=== PATIENT | female | born 1950 | race Caucasian/White ===

== ENCOUNTER → 2016-10-15 | Outpatient (CLI) | payer MEDICARE ==
[~2016-10-15] MED LIST: /PANT40TA; /SUCR1TA; ALBU17IN2; AMLO10TA PO; AMLO5TAB; ATEN25TA; ATEN25TA PO; CALC500T36 PO; DIOV80TA; E-Z-GAS II EFFERVESCENT PACKET (SODIUM BICARB./CITRIC ACID/SIMETHICONE) As Ordered ONE; E-Z-HD 98% w/w 340GM SUSP BTL As Ordered ONE; E-Z-PAQUE 96% w/w SUSP 176GM BTL As Ordered ONE; FERR325T; FISH500C PO; FISHCAP; GAS-80CH; GLUC1CAP9 PO; IBUP800T23 PO; KLOR10TA; OYST500T; PERC5TAB6 PO; PERC5TAB8; PREV30CA11 PO; PROMETHAZINE; ST JOHN'S WART; TUSSSUS5; TYLE650T30 PO; VITA100T5; VITA100T5 PO; VITA400T2 PO; VITAMIN B COMPLE1; VITAMIN D50000 UNT; XANA0.5T PO; [UNRECOGNIZED DRUG - OTHER]
--- NOTE | 2016-10-16 08:07 | REP ---
UPPER GI, AIR CONTRAST: The procedure was performed under the direct supervision of Dr. Park. The images were reviewed with Dr. Park. The graphic specialist film shows no organomegaly or pathological masses. The intestinal gas pattern is nonspecific. There is levoscoliosis. Liquid barium was administered in the erect and prone oblique positions. The oral and pharyngeal stages of deglutition are unremarkable. Esophageal transport is prompt and efficient and there is no esophagitis, stricture or mucosal ring. The patient states she has had remote hiatal hernia repair. At the GE junction, there is irregular mucosa with a possible ulcer at the GE junction. There is gastroesophageal reflux demonstrated to the level of the tanya. These findings may represent reflux esophagitis. The stomach saleh are normally outlined. There is a gastric diverticulum in the fundus. There is no gastritis, neoplasm or ulcer disease. The duodenal saleh are normally outlined. The mucosal folds are smooth and regular. There is no duodenitis, pancreatitis, peptic ulcer disease or neoplasm. The visualized portion of the proximal small bowel appears normal in course and caliber. IMPRESSION: 1. There is irregular mucosa with a possible ulcer at the GE junction. There is gastroesophageal reflux demonstrated to the level of the tanya. These findings may represent reflux esophagitis. 2. There is a small gastric diverticulum in the fundus of the stomach. 2 minutes and 55 seconds of fluoroscopy time was utilized for this procedure. Reviewed by EVANGELINA Balderrama 10/17/2016 03:26 PEdited and Signed by Rajesh Park MD 10/17/2016 04:49 P
== END ==
LOC: M RAD 09:26
PROVIDERS: ATTEND Surgery
DX: R13.10 Dysphagia, unspecified (principal)

== ENCOUNTER → 2016-10-31 | Outpatient (CLI) | payer MEDICARE ==
[~2016-10-31] VITALS: Ht 160 cm; Wt 83.0 kg
[~2016-10-31] MED LIST changes: +CALC600T21 PO; -E-Z-GAS II EFFERVESCENT PACKET (SODIUM BICARB./CITRIC ACID/SIMETHICONE) As Ordered ONE; -E-Z-HD 98% w/w 340GM SUSP BTL As Ordered ONE; -E-Z-PAQUE 96% w/w SUSP 176GM BTL As Ordered ONE; +LIDOCAINE 2% INJ 100 MG/5 ML SDV (FOR ANES.) As Ordered ONE; +OXYB5TA PO; +PROPOFOL 200 MG/20 ML VIAL As Ordered ONE; +RANI15TA PO; +VITA-121 PO; +VITA500C24 PO; +XANA0.25 PO
[2016-10-31] MEDS: NS 1,000 ML IV SCH (08:33)
--- NOTE | 2016-10-31 09:14 | ROOR ---
Patient Name: Maggie Sow Procedure Date: 10/31/2016 8:56 AM Date of : 1950 Age: 66 Room: [facility] Gender: Female Note Status: Finalized Procedure: Upper GI endoscopy Indications: Esophageal dysphagia, Heartburn, Suspected reflux esophagitis Providers: Mario Willson MD Referring MD: Ry Becerril MD Requesting Provider: Medicines: Monitored Anesthesia Care Complications: No immediate complications. Procedure: Pre-Anesthesia Assessment: - Prior to the procedure, a History and Physical was performed, and patient medications and allergies were reviewed. The patient is competent. The risks and benefits of the procedure and the sedation options and risks were discussed with the patient. All questions were answered and informed consent was obtained. Patient identification and proposed procedure were verified by the physician, the nurse and the anesthesiologist in the endoscopy suite. Mental Status Examination: alert and oriented. Airway Examination: normal oropharyngeal airway and neck mobility. Respiratory Examination: clear to auscultation. CV Examination: normal. Prophylactic Antibiotics: The patient does not require prophylactic antibiotics. Prior Anticoagulants: The patient has taken no previous anticoagulant or antiplatelet agents. ASA Grade Assessment: II - A patient with mild systemic disease. After reviewing the risks and benefits, the patient was deemed in satisfactory condition to undergo the procedure. The anesthesia plan was to use monitored anesthesia care (MAC). Immediately prior to administration of medications, the patient was re-assessed for adequacy to receive sedatives. The heart rate, respiratory rate, oxygen saturations, blood pressure, adequacy of pulmonary ventilation, and response to care were monitored throughout the procedure. The physical status of the patient was re-assessed after the procedure. The Endoscope was introduced through the mouth, and advanced to the second part of duodenum. The upper GI endoscopy was accomplished without difficulty. The patient tolerated the procedure well. Findings: Three cratered, linear and superficial esophageal ulcers with no bleeding and no stigmata of recent bleeding were found 35 to 38 cm from the incisors. The largest lesion was less than one mm in largest dimension. This was biopsied with a cold forceps for histology. Estimated blood loss was minimal. A small hiatal hernia was present. The second portion of the duodenum was normal. Impression: - Non-bleeding esophageal ulcers. Biopsied. - Small hiatal hernia. - Normal second portion of the duodenum. Recommendation: - Discharge patient to home (ambulatory). - Use Zantac (ranitidine) 150 mg PO BID indefinitely. - Return to my office in 1 month. Mario Willson MD Mario Willson MD 10/31/2016 9:13:59 AM This report has been signed electronically. Number of Addenda: 0 Note Initiated On: 10/31/2016 8:56 AM Estimated Blood Loss: Estimated blood loss was minimal.
[2016-10-31 09:30] VITALS: BP 160/76
== END | disposition home or self-care (01) ==
LOC: M OPP 08:12
PROVIDERS: ATTEND Surgery
DX: R13.10 Dysphagia, unspecified (principal); R12 Heartburn; K22.10 Ulcer of esophagus without bleeding; K44.9 Diaphragmatic hernia without obstruction or gangrene; K21.9 Gastro-esophageal reflux disease without esophagitis; I10 Essential (primary) hypertension; M62.81 Muscle weakness (generalized); F41.9 Anxiety disorder, unspecified; F32.9 Major depressive disorder, single episode, unspecified; Z87.19 Personal history of other diseases of the digestive system; M19.90 Unspecified osteoarthritis, unspecified site; M51.9 Unspecified thoracic, thoracolumbar and lumbosacral intervertebral disc disorder; M25.78 Osteophyte, vertebrae; Z86.12 Personal history of poliomyelitis; Z88.8 Allergy status to other drugs, medicaments and biological substances; Z88.1 Allergy status to other antibiotic agents; Z79.899 Other long term (current) drug therapy; Z80.1 Family history of malignant neoplasm of trachea, bronchus and lung; Z80.42 Family history of malignant neoplasm of prostate

== ENCOUNTER → 2017-01-29 | Outpatient (CLI) | payer OTHER, MEDICARE ==
[~2017-01-29] MED LIST changes: -CALC600T21 PO; +CALC600T60 PO; +IBUP1TAB7 PO; -IBUP800T23 PO; -LIDOCAINE 2% INJ 100 MG/5 ML SDV (FOR ANES.) As Ordered ONE; -OXYB5TA PO; +OXYB5TAB10 PO; +PERC5TAB12 PO; -PERC5TAB6 PO; +PREV1CAP PO; -PREV30CA11 PO; -PROPOFOL 200 MG/20 ML VIAL As Ordered ONE
--- NOTE | 2017-01-29 12:02 | REP ---
COMPLETE SKULL, FIVE VIEW: HISTORY: Trauma. There is no acute fracture or bone lesion. The sinuses are clear. IMPRESSION: There is no acute fracture or bone lesion. Signed by Harman Epps MD 01/29/2017 12:14 P
== END ==
LOC: M LAB 10:18 → M RAD 10:18
PROVIDERS: ATTEND Nurse Practitioner Family
DX: R42 Dizziness and giddiness (principal)

== ENCOUNTER 2017-05-15 07:05 | Day surgery (SDC) | payer MEDICARE ==
[~2017-05-15] VITALS: Ht 160 cm; Wt 82.6 kg
[~2017-05-15 07:05] MED LIST changes: +CARA1TAB6 PO; +TOPR25TA PO
[2017-05-15] MEDS ORDERED: NS 1,000 ML IV ONE (07:45)
[2017-05-15] MEDS ORDERED: PROPOFOL 200 MG/20 ML VIAL As Ordered ONE (08:30)
[2017-05-15] MEDS ORDERED: LIDOCAINE 2% INJ 100 MG/5 ML SDV (FOR ANES.) As Ordered ONE (08:30)
--- NOTE | 2017-05-15 08:42 | ROOR ---
Patient Name: Maggie Sow Procedure Date: 05/15/2017 8:19 AM Date of : 1950 Age: 67 Room: [facility] Gender: Female Note Status: Finalized Procedure: Upper GI endoscopy Indications: Heartburn, Suspected Burden's esophagus, Follow-up of Burden's esophagus Providers: Mario Willson MD Referring MD: Davion Becerril Requesting Provider: Medicines: Monitored Anesthesia Care Complications: No immediate complications. Procedure: Pre-Anesthesia Assessment: - Prior to the procedure, a History and Physical was performed, and patient medications and allergies were reviewed. The patient is competent. The risks and benefits of the procedure and the sedation options and risks were discussed with the patient. All questions were answered and informed consent was obtained. Patient identification and proposed procedure were verified by the physician, the nurse and the anesthesiologist in the endoscopy suite. Mental Status Examination: alert and oriented. Airway Examination: normal oropharyngeal airway and neck mobility. Respiratory Examination: clear to auscultation. CV Examination: normal. Prophylactic Antibiotics: The patient does not require prophylactic antibiotics. Prior Anticoagulants: The patient has taken no previous anticoagulant or antiplatelet agents. ASA Grade Assessment: II - A patient with mild systemic disease. After reviewing the risks and benefits, the patient was deemed in satisfactory condition to undergo the procedure. The anesthesia plan was to use monitored anesthesia care (MAC). Immediately prior to administration of medications, the patient was re-assessed for adequacy to receive sedatives. The heart rate, respiratory rate, oxygen saturations, blood pressure, adequacy of pulmonary ventilation, and response to care were monitored throughout the procedure. The physical status of the patient was re-assessed after the procedure. The Endoscope was introduced through the mouth, and advanced to the second part of duodenum. The upper GI endoscopy was somewhat difficult. The patient tolerated the procedure well. Findings: One tongue of salmon-colored mucosa was present at 32 cm and three tongues of salmon-colored mucosa were present at 28 cm. No other visible abnormalities were present. The maximum longitudinal extent of these esophageal mucosal changes was 5 cm in length. Biopsies were taken with a cold forceps for histology. Impression: - No specimens collected. Recommendation: - Discharge patient to home (ambulatory). - Use Protonix (pantoprazole) 40 mg PO daily indefinitely. Mario Willson MD Mario Willson MD 05/15/2017 8:41:39 AM This report has been signed electronically. Number of Addenda: 0 Note Initiated On: 05/15/2017 8:19 AM Estimated Blood Loss: Estimated blood loss was minimal.
[2017-05-15 09:13] VITALS: BP 141/92
== END 2017-05-15 09:14 | disposition home or self-care (01) ==
LOC: M OPP 07:05
PROVIDERS: ATTEND Surgery
DX: R12 Heartburn (principal); K21.0 Gastro-esophageal reflux disease with esophagitis; K22.10 Ulcer of esophagus without bleeding; K22.70 Barrett's esophagus without dysplasia; I10 Essential (primary) hypertension; K57.92 Diverticulitis of intestine, part unspecified, without perforation or abscess without bleeding; K58.9 Irritable bowel syndrome, unspecified; R06.02 Shortness of breath; M19.90 Unspecified osteoarthritis, unspecified site; F32.9 Major depressive disorder, single episode, unspecified; F41.9 Anxiety disorder, unspecified; Z86.12 Personal history of poliomyelitis; Z87.820 Personal history of traumatic brain injury; Z88.8 Allergy status to other drugs, medicaments and biological substances; Z88.1 Allergy status to other antibiotic agents; Z79.899 Other long term (current) drug therapy; Z80.1 Family history of malignant neoplasm of trachea, bronchus and lung; Z80.42 Family history of malignant neoplasm of prostate

== ENCOUNTER 2017-07-25 10:47 | Day surgery (SDC) | payer MEDICARE ==
[~2017-07-25 10:47] MED LIST changes: -/PANT40TA; -/SUCR1TA; -ALBU17IN2; -AMLO10TA PO; -AMLO5TAB; -ATEN25TA; -ATEN25TA PO; -CALC500T36 PO; -CALC600T60 PO; -CARA1TAB6 PO; -DIOV80TA; -FERR325T; -FISH500C PO; -FISHCAP; -GAS-80CH; -GLUC1CAP9 PO; -IBUP1TAB7 PO; -KLOR10TA; +LIDOCAINE 2% INJ 100 MG/5 ML SDV (FOR ANES.) As Ordered; -OXYB5TAB10 PO; -OYST500T; -PERC5TAB12 PO; -PERC5TAB8; -PREV1CAP PO; -PROMETHAZINE; +PROPOFOL 200 MG/20 ML VIAL As Ordered; -RANI15TA PO; -ST JOHN'S WART; -TOPR25TA PO; -TUSSSUS5; -TYLE650T30 PO; -VITA-121 PO; -VITA100T5; -VITA100T5 PO; -VITA400T2 PO; -VITA500C24 PO; -VITAMIN B COMPLE1; -VITAMIN D50000 UNT; -XANA0.25 PO; -XANA0.5T PO; -[UNRECOGNIZED DRUG - OTHER]
[2017-07-25] MEDS: NS 1,000 ML IV (11:00)
== END 2017-07-25 13:14 | disposition home or self-care (01) ==
LOC: M OPP 10:47
DX: K22.2 Esophageal obstruction (principal); R13.10 Dysphagia, unspecified; K44.9 Diaphragmatic hernia without obstruction or gangrene; I10 Essential (primary) hypertension; K21.9 Gastro-esophageal reflux disease without esophagitis; F32.9 Major depressive disorder, single episode, unspecified; F41.9 Anxiety disorder, unspecified; M17.0 Bilateral primary osteoarthritis of knee; Z87.820 Personal history of traumatic brain injury; Z78.0 Asymptomatic menopausal state
CPT/HCPCS: 43249

== ENCOUNTER → 2018-06-24 | Outpatient (REF) | payer MEDICARE, OTHER ==
[~2018-06-24] MED LIST changes: +/PANT40TA; +/SUCR1TA; +ACET1TAB55 PO; +ALBU17IN2; +AMLO10TA PO; +AMLO5TAB; +ASPI81TA85 PO; +ATEN25TA; +ATEN25TA PO; +ATOR1TAB21 PO; +CALC500T36 PO; +CALC600T60 PO; +CARA1TAB6 PO; +DIOV80TA; +FERR325T; +FERR325T16 PO; +FISH500C PO; +FISHCAP; +GAS-80CH; +GLUC1CAP9 PO; +IBUP1TAB7 PO; +KLOR10TA; -LIDOCAINE 2% INJ 100 MG/5 ML SDV (FOR ANES.) As Ordered; +LISI2.5T5 PO; +METO25TA4 PO; +OXYB5TAB10 PO; +OYST500T; +PANT40TA3 PO; +PERC5TAB12 PO; +PERC5TAB8; +PLAV1TAB2 PO; +PREV1CAP PO; +PROMETHAZINE; -PROPOFOL 200 MG/20 ML VIAL As Ordered; +RANI15TA PO; +ST JOHN'S WART; +TOPR25TA13 PO; +TUSSSUS5; +TYLE650T30 PO; +TYLE650T35 PO; +VITA-121 PO; +VITA100T5; +VITA100T59 PO; +VITA400T2 PO; +VITA500C24 PO; +VITA500T PO; +VITAMIN B COMPLE1; +VITAMIN D50000 UNT; +XANA0.25 PO; +XANA0.5T PO; +[UNRECOGNIZED DRUG - OTHER]
[2018-06-24 18:10] LABS: PERCENT SATURATION 37.3 % (13.2-45.0)
== END ==
LOC: M LAB REF 17:28
PROVIDERS: ATTEND Family Medicine
DX: I10 Essential (primary) hypertension (principal); D64.9 Anemia, unspecified

== ENCOUNTER 2018-07-07 15:04 | Outpatient (RCR) | payer MEDICARE ==
--- NOTE | 2018-07-02 14:14 | CARECAPL ---
Assessment Account #s: Initial Assessment General Diagnoses: STEMI Date of event: May 23, 2018 Allergies: Coded Allergies: Atorvastatin (Verified Adverse Reaction, Intermediate, MUSCLE ACHES, 07/22/17) Cephalosporins (Verified Adverse Reaction, Intermediate, DIARRHEA, 05/27) Simvastatin (Verified Adverse Reaction, Intermediate, MUSCLE ACHES, 07/22/17) Date Entered Program: Jul 02, 2018 Risk strat for cardiac event: Low Exercise Date: Jul 02, 2018 Assessment: Initial Assessment Exercise Prescription Plan educate and increase endurance through exercise Modalities initiated: Treadmill (will add), Nustep (mets 2.1 RPE 3), Arm Aerometer (mets 2.55 RPE 2), Dumbells (will add), Recumbent Bike (mets 2.7 RPE 3) Frequency: 2-3 Duration (Minutes) 30-60 minutes total exercise a day. 15-20 work intervals in minutes. prn rest intervals in minutes. Functional Capacity Goal Sustained Metabolic Equivalent of a task (MET) goal of 3.75-4.5 for 15-20 minutes. Intensity: 3-Moderate Progression (METS) Increase by: 0.5 METS every: 3-5 sessions Angina with ex: No Target Heart Rate rest + 35-40 Resistance Training: Yes Weight (pounds): 1 Reps: 8-12 Hypertension: Yes Hypertension controlled with: Medication Resting 157/88 Peak Exercise BP 170/90 Meds norvasc, lisinopril and lopressor Medications Scheduled (Glucosamine & Chondroitin 500-400 mg), 2 CAP PO DAILY, (Reported) Acetaminophen (Tylenol 8 Hour Arthritis), 650 MG PO DAILY, (Reported) Amlodipine Besylate (Norvasc), 10 MG PO DAILY, (Reported) Ascorbic Acid (Vitamin C), 500 MG PO DAILY, (Reported) Aspirin (Aspir-81), 1 TAB PO DAILY, (Reported) Atorvastatin Calcium (Atorvastatin Calcium), 1 TAB PO BID, (Reported) Calcium Carbonate (Calcium), 600 MG PO DAILY, (Reported) Clopidogrel Bisulfate (Plavix), 75 MG PO DAILY, (Reported) Ferrous Gluconate (Ferrous Gluconate), 1 TAB PO DAILY, (Reported) Fish Oil (Fish Oil), 1,000 MG PO DAILY, (Reported) Lisinopril (Lisinopril), 5 MG PO DAILY, (Reported) Metoprolol Tartrate (Metoprolol Tartrate), 50 MG PO DAILY, (Reported) Oxybutynin Chloride (Oxybutynin Chloride), 5 MG PO BIDP, (Reported) Pantoprazole Sodium (Pantoprazole Sodium), 40 MG PO BID, (Reported) Scheduled PRN Acetaminophen (Acetaminophen), 325 MG PO PRN PRN for PAIN, (Reported) Alprazolam (Xanax), 0.25 MG PO BIDP PRN for ANXIETY, (Reported) Target Goals Individual exercise Rx (1) BP 140/90 or 130/80 if DM or CKD (1) Aerobic active 30+min 5 days per week (1) Nutrition Date: Jul 02, 2018 Lipid- med/supplement atorvastatin Monitor Blood Sugar at home: No Weight Management Weight (lbs): 183.6 Height (inches): 63 Waist Circumference (Inches): 47 BMI: 32.4 Weight goal: 150 Special Diet: low salt, low-fat Vitamin/Supplements: Vitamin C Alcohol: special Alcohol Type: wine Alcohol Amount: 1-2 Diet Access Tool: Rate your plate Score: 54 Intervention Bill Hiker Consult: No Nurse/patient discussion: Yes Dietary Goals eat healthier and smaller portions Referral to Diabetes education: No Referral to lipid clinic: No Referral to weight mangement p: No Education Eating Healthy Target goal LDL-C<100 if triglycerides are >200 Non-HDL-C should be <130 (1) LDL-C<70 for high risk patients (4) HbA1c<7% (1) BMI<25 Waist cir<40in M/<35in F (1) Education Date: Jul 02, 2018 Assessment: Initial Assessment Learning Barriers: cognitive (age related) Knowledge Test Score: 8 Family Support: Yes Tobacco use: No Quit: never smoked Intervention Education: CAD, Risk factors, med compliance, cardiac A&P, Angina S/S, Sexuality Target Goals Complete cessation of tobacco use (1). Psychosocial Date: Jul 02, 2018 Assessment: Initial Assessment Psych Test (Initial/Discharge) Tool Used: CESD Score: 3 Intervention Physician Consult: No Physician Referral: No Psychotropic medication none Education Education: Coping Techniques, S/S depression, Relaxation Techniques Target Goal Assess presence or absence of depression using a valid screening tool (1). Maximize coping skills (2). Positive support system (2). Patient/Program Goal Preventative Medication: Yes Aspirin, Yes Clopidogrel, Yes Beta blockade, Yes NICOLÁS Inhibitor, Yes Statin/OTR lipid Lowering Fall Risk Assess: No Provider Assessment Session Number: 1 Provider Assessment: Proceed with rehab Peace Rolon RN Jul 02, 2018 14:13
== END 2018-07-10 ==
LOC: M CR 15:04
PROVIDERS: ATTEND Internal Medicine Interventional Cardiology
DX: I21.09 ST elevation (STEMI) myocardial infarction involving other coronary artery of anterior wall (principal)

== ENCOUNTER 2018-08-06 15:11 | Outpatient (RCR) | payer MEDICARE ==
--- NOTE | 2018-07-28 08:05 | CARECAPL ---
Assessment Account #s: Re-Assessment I General Diagnoses: STEMI Date of event: May 23, 2018 Allergies: Coded Allergies: Atorvastatin (Verified Adverse Reaction, Intermediate, MUSCLE ACHES, 07/22/17) Cephalosporins (Verified Adverse Reaction, Intermediate, DIARRHEA, ) Simvastatin (Verified Adverse Reaction, Intermediate, MUSCLE ACHES, 07/22/17) Date Entered Program: Jul 02, 2018 Risk strat for cardiac event: Low Exercise Date: Jul 25, 2018 Assessment: Re-Assessment I Exercise Prescription Plan educate and increase endurance through exercise Modalities initiated: Nustep (mets 2.3 RPE 3 Mets 2.5 RPE 4), Arm Aerometer (mets 2.61 RPE 3), Dumbells (3lbs RPE 3) Frequency: 2-3 Duration (Minutes) 30-60 minutes total exercise a day. 15-20 work intervals in minutes. prn rest intervals in minutes. Functional Capacity Goal Sustained Metabolic Equivalent of a task (MET) goal of 3.75-4.5 for 15-20 minutes. Intensity: 3-Moderate Progression (METS) Increase by: 0.5 METS every: 3-5 sessions Angina with ex: No Target Heart Rate Rest +35-40 Resistance Training: Yes Weight (pounds): 3 Reps: 8-12 Medications Scheduled (Glucosamine & Chondroitin 500-400 mg), 2 CAP PO DAILY, (Reported) Acetaminophen (Tylenol 8 Hour Arthritis), 650 MG PO DAILY, (Reported) Amlodipine Besylate (Norvasc), 10 MG PO DAILY, (Reported) Ascorbic Acid (Vitamin C), 500 MG PO DAILY, (Reported) Aspirin (Aspir-81), 1 TAB PO DAILY, (Reported) Atorvastatin Calcium (Atorvastatin Calcium), 1 TAB PO BID, (Reported) Calcium Carbonate (Calcium), 600 MG PO DAILY, (Reported) Clopidogrel Bisulfate (Plavix), 75 MG PO DAILY, (Reported) Ferrous Gluconate (Ferrous Gluconate), 1 TAB PO DAILY, (Reported) Fish Oil (Fish Oil), 1,000 MG PO DAILY, (Reported) Lisinopril (Lisinopril), 5 MG PO DAILY, (Reported) Metoprolol Tartrate (Metoprolol Tartrate), 50 MG PO DAILY, (Reported) Oxybutynin Chloride (Oxybutynin Chloride), 5 MG PO BIDP, (Reported) Pantoprazole Sodium (Pantoprazole Sodium), 40 MG PO BID, (Reported) Scheduled PRN Acetaminophen (Acetaminophen), 325 MG PO PRN PRN for PAIN, (Reported) Alprazolam (Xanax), 0.25 MG PO BIDP PRN for ANXIETY, (Reported) Current BP 124/90 Med Change: No Intervention Resistance Training: Yes Education: Self pulse, Ex safety, S/S to report, Low NA diet, BP medication, RPE Scale, Equipment orientation, warm up/cool down, Understand BP, Physical Active Target Goals Individual exercise Rx (1) BP 140/90 or 130/80 if DM or CKD (1) Aerobic active 30+min 5 days per week (1) Nutrition Date: Jul 28, 2018 Assessment: Re-Assessment I Lipid- med/supplement atorvastatin Med Change: No Medication Change: No Special Diet: low salt, low-fat Vitamin/Supplements: Vitamin C Current Weight (pounds): 183.6 Intervention Dietary Goals 150 Diet Class: Yes Education Eating Healthy Target goal LDL-C<100 if triglycerides are >200 Non-HDL-C should be <130 (1) LDL-C<70 for high risk patients (4) HbA1c<7% (1) BMI<25 Waist cir<40in M/<35in F (1) Education Date: Jul 28, 2018 Assessment: Re-Assessment I Target Goals Complete cessation of tobacco use (1). Psychosocial Date: Jul 28, 2018 Assessment: Re-Assessment I Med Change: No Stress Management Class: Yes Uses Stress Management Skills: Yes Education Education: Coping Techniques, S/S depression, Relaxation Techniques Target Goal Assess presence or absence of depression using a valid screening tool (1). Maximize coping skills (2). Positive support system (2). Patient/Program Goal Preventative Medication: Yes Aspirin, Yes Clopidogrel, Yes Beta blockade, Yes NICOLÁS Inhibitor, Yes Statin/OTR lipid Lowering Fall Risk Assess: No Provider Assessment Session Number: 6 Provider Assessment: Proceed with rehab Peace Rolon RN Jul 28, 2018 08:05
== END 2018-08-07 ==
LOC: M CR 15:11
PROVIDERS: ATTEND Internal Medicine Interventional Cardiology
DX: I21.4 Non-ST elevation (NSTEMI) myocardial infarction (principal)

== ENCOUNTER 2018-09-04 15:21 | Outpatient (RCR) | payer MEDICARE ==
--- NOTE | 2018-08-20 10:35 | CARECAPL ---
Assessment Account #s: Re-Assessment II General Diagnoses: STEMI Date of event: May 23, 2018 Allergies: Coded Allergies: Atorvastatin (Verified Adverse Reaction, Intermediate, MUSCLE ACHES, 07/22/17) Cephalosporins (Verified Adverse Reaction, Intermediate, DIARRHEA, 07/22) Simvastatin (Verified Adverse Reaction, Intermediate, MUSCLE ACHES, 07/22/17) Date Entered Program: Jul 02, 2018 Risk strat for cardiac event: Low Exercise Date: Aug 15, 2018 Assessment: Re-Assessment II Exercise Prescription Modalities initiated: Treadmill (mets 1.46 RPE 3), Nustep (mets 2.2 RPE 2), Arm Aerometer (mets 2.24 RPE 3), Dumbells (2lbs RPE 2.5) Frequency: 2 Duration (Minutes) minutes total exercise a day. work intervals in minutes. rest intervals in minutes. Functional Capacity Goal Sustained Metabolic Equivalent of a task (MET) goal of for minutes. Intensity: 3-Moderate Progression (METS) Increase by: METS every: sessions Angina with ex: No Target Heart Rate Rest + 35-40 Medications Scheduled (Glucosamine & Chondroitin 500-400 mg), 2 CAP PO DAILY, (Reported) Acetaminophen (Tylenol 8 Hour Arthritis), 650 MG PO DAILY, (Reported) Amlodipine Besylate (Norvasc), 10 MG PO DAILY, (Reported) Ascorbic Acid (Vitamin C), 500 MG PO DAILY, (Reported) Aspirin (Aspir-81), 1 TAB PO DAILY, (Reported) Atorvastatin Calcium (Atorvastatin Calcium), 1 TAB PO BID, (Reported) Calcium Carbonate (Calcium), 600 MG PO DAILY, (Reported) Clopidogrel Bisulfate (Plavix), 75 MG PO DAILY, (Reported) Ferrous Gluconate (Ferrous Gluconate), 1 TAB PO DAILY, (Reported) Fish Oil (Fish Oil), 1,000 MG PO DAILY, (Reported) Lisinopril (Lisinopril), 5 MG PO DAILY, (Reported) Metoprolol Tartrate (Metoprolol Tartrate), 50 MG PO DAILY, (Reported) Oxybutynin Chloride (Oxybutynin Chloride), 5 MG PO BIDP, (Reported) Pantoprazole Sodium (Pantoprazole Sodium), 40 MG PO BID, (Reported) Scheduled PRN Acetaminophen (Acetaminophen), 325 MG PO PRN PRN for PAIN, (Reported) Alprazolam (Xanax), 0.25 MG PO BIDP PRN for ANXIETY, (Reported) Current BP 136/80 Med Change: No Intervention Education: Self pulse, Ex safety, S/S to report, Low NA diet, BP medication, RPE Scale, Equipment orientation, warm up/cool down, Understand BP, Physical Active Education Goals Met: Yes Target Goals Individual exercise Rx (1) BP 140/90 or 130/80 if DM or CKD (1) Aerobic active 30+min 5 days per week (1) Nutrition Date: Aug 20, 2018 Assessment: Re-Assessment II Med Change: No Diabetes Diabetes: No Medication Change: No Weight Management Weight (lbs): 183.6 Current Weight (pounds): 183.6 Education Eating Healthy Education Goals Met: Yes Target goal LDL-C<100 if triglycerides are >200 Non-HDL-C should be <130 (1) LDL-C<70 for high risk patients (4) HbA1c<7% (1) BMI<25 Waist cir<40in M/<35in F (1) Education Date: Aug 20, 2018 Assessment: Re-Assessment II Intervention Education: CAD, Risk factors, med compliance, cardiac A&P, Angina S/S, Sexuality Education Goals Met: Yes Target Goals Complete cessation of tobacco use (1). Psychosocial Date: Aug 20, 2018 Assessment: Re-Assessment II Med Change: No Stress Management Class: Yes Uses Stress Management Skills: Yes Education Education: Coping Techniques, S/S depression, Relaxation Techniques Education Goals Met: Yes Target Goal Assess presence or absence of depression using a valid screening tool (1). Maximize coping skills (2). Positive support system (2). Provider Assessment Session Number: 11 Provider Assessment: Proceed with rehab Peace Rolon RN Aug 20, 2018 10:35
--- NOTE | 2018-09-08 10:50 | CARECAPL ---
Assessment Account #s: Re-Assessment II (reassessment III) General Diagnoses: STEMI Date of event: Jul 02, 2018 Allergies: Coded Allergies: MS - Atorvastatin (Verified Adverse Reaction, Intermediate, MUSCLE ACHES, 07/22/17) MS - Cephalosporins (Verified Adverse Reaction, Intermediate, DIARRHEA, 07/22/17) MS - Simvastatin (Verified Adverse Reaction, Intermediate, MUSCLE ACHES, 07/22/17) Date Entered Program: Aug 15, 2018 Risk strat for cardiac event: Low Exercise Date: Sep 08, 2018 Assessment: Re-Assessment II (reassessment III) Exercise Prescription Modalities initiated: Nustep, Arm Aerometer, Dumbells Frequency: 2 Duration (Minutes) minutes total exercise a day. work intervals in minutes. rest intervals in minutes. Functional Capacity Goal Sustained Metabolic Equivalent of a task (MET) goal of for minutes. Intensity: 3-Moderate Progression (METS) Increase by: METS every: sessions Angina with ex: No Resistance Training: Yes Weight (pounds): 2 Medications Scheduled (Glucosamine & Chondroitin 500-400 mg), 2 CAP PO DAILY, (Reported) Acetaminophen (Tylenol 8 Hour Arthritis), 650 MG PO DAILY, (Reported) Amlodipine Besylate (Norvasc), 10 MG PO DAILY, (Reported) Ascorbic Acid (Vitamin C), 500 MG PO DAILY, (Reported) Aspirin (Aspir-81), 1 TAB PO DAILY, (Reported) Atorvastatin Calcium (Atorvastatin Calcium), 1 TAB PO BID, (Reported) Calcium Carbonate (Calcium), 600 MG PO DAILY, (Reported) Clopidogrel Bisulfate (Plavix), 75 MG PO DAILY, (Reported) Ferrous Gluconate (Ferrous Gluconate), 1 TAB PO DAILY, (Reported) Fish Oil (Fish Oil), 1,000 MG PO DAILY, (Reported) Lisinopril (Lisinopril), 5 MG PO DAILY, (Reported) Metoprolol Tartrate (Metoprolol Tartrate), 50 MG PO DAILY, (Reported) Oxybutynin Chloride (Oxybutynin Chloride), 5 MG PO BIDP, (Reported) Pantoprazole Sodium (Pantoprazole Sodium), 40 MG PO BID, (Reported) Scheduled PRN Acetaminophen (Acetaminophen), 325 MG PO PRN PRN for PAIN, (Reported) Alprazolam (Xanax), 0.25 MG PO BIDP PRN for ANXIETY, (Reported) Current BP 130/78 Med Change: No Intervention Home exercise: Type (walking, hand weights, stationary bike, join local gym) Resistance Training: Yes Education: Self pulse, Ex safety, S/S to report, Low NA diet, BP medication, RPE Scale, Equipment orientation, warm up/cool down, Understand BP, Physical Active Education Goals Met: Yes Target Goals Individual exercise Rx (1) BP 140/90 or 130/80 if DM or CKD (1) Aerobic active 30+min 5 days per week (1) Nutrition Date: Sep 08, 2018 Assessment: Re-Assessment II (reassessment III) Med Change: No Medication Change: No Current Weight (pounds): 187.5 Intervention Family Support Coordinator Consult: Yes Nurse/patient discussion: Yes Diet Class: Yes Education Eating Healthy Education Goals Met: Yes Target goal LDL-C<100 if triglycerides are >200 Non-HDL-C should be <130 (1) LDL-C<70 for high risk patients (4) HbA1c<7% (1) BMI<25 Waist cir<40in M/<35in F (1) Education Date: Sep 08, 2018 Assessment: Re-Assessment II (reassessment III) Intervention Education: CAD, Risk factors, med compliance, cardiac A&P, Angina S/S, Sexuality Education Goals Met: Yes Target Goals Complete cessation of tobacco use (1). Psychosocial Assessment: Re-Assessment II Target Goal Assess presence or absence of depression using a valid screening tool (1). Maximize coping skills (2). Positive support system (2). Provider Assessment Session Number: 15 Provider Assessment: No changes Umm Menendez RN Sep 08, 2018 10:50
== END 2018-09-07 ==
LOC: M CR 15:21
PROVIDERS: ATTEND Internal Medicine Interventional Cardiology
DX: I21.09 ST elevation (STEMI) myocardial infarction involving other coronary artery of anterior wall (principal)

== ENCOUNTER 2018-09-18 14:08 | Outpatient (RCR) | payer MEDICARE ==
[~2018-09-18 14:08] MED LIST changes: -/PANT40TA; -/SUCR1TA; +CALC12504 PO; -CALC500T36 PO; +LISI-1046 PO; -LISI2.5T5 PO; +PROT1TAB2; +SUCR1TAB56; +TOPR25TA PO; -TOPR25TA13 PO
--- NOTE | 2018-09-25 09:52 | CARECAPL ---
General Diagnoses: STEMI Date of event: Jul 02, 2018 Allergies: Coded Allergies: MS - Atorvastatin (Verified Adverse Reaction, Intermediate, MUSCLE ACHES, 07/22/17) MS - Cephalosporins (Verified Adverse Reaction, Intermediate, DIARRHEA, 07/22/17) MS - Simvastatin (Verified Adverse Reaction, Intermediate, MUSCLE ACHES, 07/22/17) Date Entered Program: Jul 02, 2018 Risk strat for cardiac event: Low Exercise Date: Sep 18, 2018 Assessment: Followup/Discharge Exercise Prescription Plan educate and increase endurance through exercise Modalities initiated: Treadmill (speed 0.6 Mets 1.46 RPE 2), Arm Aerometer (3.5 mets 3.5 RPE 2), Dumbells (3lbs RPE 2) Frequency: 2 Duration (Minutes) 30-60 minutes total exercise a day. 6-12 work intervals in minutes. prn rest intervals in minutes. Functional Capacity Goal Sustained Metabolic Equivalent of a task (MET) goal of 3.75-4.5 for 15-20 minutes. Intensity: 3-Moderate Progression (METS) Increase by: 0.5 METS every: 3-5 sessions Angina with ex: No Target Heart Rate rest + 35-40 per beta humberto therapy Resistance Training: Yes Weight (pounds): 3 Reps: 8-12 Hypertension: No Hypertension controlled with: Medication Resting 152/82 Peak Exercise BP 160/90 Meds norvasc, metoprolol and lisinopril Medications Scheduled (Glucosamine & Chondroitin 500-400 mg), 2 CAP PO DAILY, (Reported) Acetaminophen (Tylenol Arthritis), 650 MG PO DAILY, (Reported) Amlodipine Besylate (Norvasc), 10 MG PO DAILY, (Reported) Ascorbic Acid (Vitamin C), 500 MG PO DAILY, (Reported) Aspirin (Aspir 81), 1 TAB PO DAILY, (Reported) Atorvastatin Calcium (Atorvastatin Calcium), 1 TAB PO BID, (Reported) Calcium Carbonate (Calcium), 600 MG PO DAILY, (Reported) Clopidogrel Bisulfate (Plavix), 75 MG PO DAILY, (Reported) Ferrous Gluconate (Ferrous Gluconate), 1 TAB PO DAILY, (Reported) Lisinopril (Lisinopril), 5 MG PO DAILY, (Reported) Metoprolol Tartrate (Metoprolol Tartrate), 50 MG PO DAILY, (Reported) Auxier-3/Dha/Epa/Fish Oil (Fish Oil 500 mg Softgel), 1,000 MG PO DAILY, (Reported) Oxybutynin Chloride (Oxybutynin Chloride), 5 MG PO BIDP, (Reported) Pantoprazole Sodium (Pantoprazole Sodium), 40 MG PO BID, (Reported) Scheduled PRN Acetaminophen (Acetaminophen), 325 MG PO PRN PRN for PAIN, (Reported) Alprazolam (Xanax), 0.25 MG PO BIDP PRN for ANXIETY, (Reported) Intervention Education: Self pulse, Ex safety, S/S to report, Low NA diet, BP medication, RPE Scale, Equipment orientation, warm up/cool down, Understand BP, Physical Active Education Goals Met: Yes Target Goals Individual exercise Rx (1) BP 140/90 or 130/80 if DM or CKD (1) Aerobic active 30+min 5 days per week (1) Nutrition Date: Sep 18, 2018 Assessment: Followup/Discharge Lipid- med/supplement atorvastatin Med Change: No Medication Change: No Referral to Diabetes education: No Referral to lipid clinic: No Referral to weight mangement p: No Education Eating Healthy Education Goals Met: Yes Target goal LDL-C<100 if triglycerides are >200 Non-HDL-C should be <130 (1) LDL-C<70 for high risk patients (4) HbA1c<7% (1) BMI<25 Waist cir<40in M/<35in F (1) Education Date: Sep 25, 2018 Assessment: Followup/Discharge Intervention Education: CAD, Risk factors, med compliance, cardiac A&P, Angina S/S, Sexuality Education Goals Met: Yes Target Goals Complete cessation of tobacco use (1). Psychosocial Date: Sep 25, 2018 Assessment: Followup/Discharge Med Change: No Education Education: Coping Techniques, S/S depression, Relaxation Techniques Education Goals Met: Yes Target Goal Assess presence or absence of depression using a valid screening tool (1). Maximize coping skills (2). Positive support system (2). Patient/Program Goal Preventative Medication: Yes Aspirin, Yes Clopidogrel, Yes Beta blockade, Yes NICOLÁS Inhibitor, Yes Statin/OTR lipid Lowering Fall Risk Assess: No Provider Assessment Session Number: 17 Provider Assessment: Proceed with rehab (patient discharged from program) Peace Rolon RN Sep 25, 2018 09:52
== END 2018-10-07 ==
LOC: M CR 14:08
PROVIDERS: ATTEND Internal Medicine Interventional Cardiology
DX: I21.09 ST elevation (STEMI) myocardial infarction involving other coronary artery of anterior wall (principal)

== ENCOUNTER → 2018-10-06 | Outpatient (REF) | payer MEDICARE | LOC: M SFHCPLAZ 17:22 | PROVIDERS: ATTEND Dermatology | DX: L57.0 Actinic keratosis (principal) ==

== ENCOUNTER → 2019-06-18 | Outpatient (REF) | payer MEDICARE ==
[~2019-06-18] MED LIST changes: -CALC12504 PO; +CALC500T61 PO
== END ==
LOC: M LAB REF 18:00
PROVIDERS: ATTEND Family Medicine
DX: D50.9 Iron deficiency anemia, unspecified (principal); R53.83 Other fatigue

== ENCOUNTER → 2019-07-13 | Outpatient (REF) | payer MEDICARE | LOC: M SFHCWAGY 17:07 | PROVIDERS: ATTEND Nurse Practitioner Family | DX: Z12.4 Encounter for screening for malignant neoplasm of cervix (principal); N95.8 Other specified menopausal and perimenopausal disorders; Z12.12 Encounter for screening for malignant neoplasm of rectum | CPT/HCPCS: 82270; G0101; G0123 ==

== ENCOUNTER → 2020-06-11 | Outpatient (CLI) | payer MEDICARE ==
[~2020-06-11] MED LIST changes: +ACET650T61 PO; -ASPI81TA85 PO; +ASPI81TA86 PO; +CIDA500T2 PO; +ECOT81TA5 PO; -LISI-1046 PO; +LISI2.5T2 PO; +MAGN250T7 PO; +OMEP-218 PO; +PANT40TA29 PO; -PANT40TA3 PO; -TYLE650T35 PO; +VITA-243 PO; -VITA500T PO; +VITMTA PO; +eye promise PO
== END ==
LOC: M LABSMTC 11:19
PROVIDERS: ATTEND Anesthesiology
DX: Z01.812 Encounter for preprocedural laboratory examination (principal); Z20.828 Contact with and (suspected) exposure to other viral communicable diseases

== ENCOUNTER 2020-06-16 11:39 | Day surgery (SDC) | payer MEDICARE ==
[~2020-06-16] VITALS: Ht 160 cm; Wt 82.5 kg
[~2020-06-16 11:39] MED LIST changes: +NS 1,000 ML IV ONE
[2020-06-16] MEDS ORDERED: propofoL 200 MG/20 ML VIAL As Ordered ONE (14:00)
[2020-06-16] MEDS ORDERED: LIDOCAINE 2% 100MG/5ML SDV (FOR ANES.) As Ordered ONE (14:00)
--- NOTE | 2020-06-16 14:27 | ROOR ---
Patient Name: Maggie Sow Procedure Date: 06/16/2020 2:02 PM Date of : 1950 Age: 70 Room: [facility] Gender: Female Note Status: Finalized Procedure: Upper GI endoscopy Indications: Oropharyngeal phase dysphagia, Heartburn, Follow-up of Burden's esophagus, Follow-up of esophageal stenosis Providers: Harrison ARMAS MD Referring MD: Ry Becerril MD Requesting Provider: Medicines: Monitored Anesthesia Care Complications: No immediate complications. Procedure: Pre-Anesthesia Assessment: - The heart rate, respiratory rate, oxygen saturations, blood pressure, adequacy of pulmonary ventilation, and response to care were monitored throughout the procedure. The Endoscope was introduced through the mouth, and advanced to the second part of duodenum. The upper GI endoscopy was accomplished without difficulty. The patient tolerated the procedure well. Findings: One benign-appearing, intrinsic moderate (circumferential scarring or stenosis; an endoscope may pass) stenosis was found 36 cm from the incisors. This stenosis measured less than one cm (in length). The stenosis was traversed. A TTS dilator was passed through the scope. Dilation with a 15-16.5-18 mm balloon dilator was performed to 16.5 mm. The dilation site was examined and showed moderate mucosal disruption. Biopsies were taken with a cold forceps for histology. Meyers Chuck-colored mucosa was present. Squamous islands were present at 36 cm. The maximum longitudinal extent of these esophageal mucosal changes was 1 cm in length. Biopsies were taken with a cold forceps for histology. The entire examined stomach was normal. The examined duodenum was normal. Impression: - Benign-appearing esophageal stenosis at GE junction/36 cm from incisors. Dilated. - Meyers Chuck-colored mucosa in the area of the stricturte consistent with short-segment Burden's esophagus. Biopsied. - Normal stomach. - Normal examined duodenum. Recommendation: - Observe patient's clinical course. - Use Prilosec (omeprazole) 20 mg PO BID indefinitely. - Repeat upper endoscopy for surveillance in 3 years (or sooner depending on pathology results). Procedure Code(s): --- Professional --- 04883, Esophagogastroduodenoscopy, flexible, transoral; with transendoscopic balloon dilation of esophagus (less than 30 mm diameter) 56206, 59, Esophagogastroduodenoscopy, flexible, transoral; with biopsy, single or multiple Diagnosis Code(s): --- Professional --- R12, Heartburn R13.12, Dysphagia, oropharyngeal phase K22.70, Burden's esophagus without dysplasia K22.2, Esophageal obstruction CPT copyright 2019 [employer]. All rights reserved. The codes documented in this report are preliminary and upon pit operator review may be revised to meet current compliance requirements. Harrison Armas MD Harrison ARMAS MD 06/16/2020 2:26:58 PM Electronically signed by Harrison ARMAS MD Number of Addenda: 0 Note Initiated On: 06/16/2020 2:02 PM Estimated Blood Loss: Estimated blood loss: none.
[2020-06-16 15:06] VITALS: BP 156/78
== END 2020-06-16 15:11 | disposition home or self-care (01) ==
LOC: M OPP 11:39
PROVIDERS: ATTEND Internal Medicine Gastroenterology
DX: R13.12 Dysphagia, oropharyngeal phase (principal); R12 Heartburn; K22.70 Barrett's esophagus without dysplasia; K22.2 Esophageal obstruction; I25.2 Old myocardial infarction; I10 Essential (primary) hypertension; E78.5 Hyperlipidemia, unspecified; M19.90 Unspecified osteoarthritis, unspecified site; K21.9 Gastro-esophageal reflux disease without esophagitis; F41.9 Anxiety disorder, unspecified; Z95.5 Presence of coronary angioplasty implant and graft; Z88.1 Allergy status to other antibiotic agents; Z88.8 Allergy status to other drugs, medicaments and biological substances; Z79.82 Long term (current) use of aspirin; Z79.899 Other long term (current) drug therapy; Z80.42 Family history of malignant neoplasm of prostate; Z80.1 Family history of malignant neoplasm of trachea, bronchus and lung; Z82.49 Family history of ischemic heart disease and other diseases of the circulatory system; Z80.49 Family history of malignant neoplasm of other genital organs

== ENCOUNTER → 2020-06-29 | Outpatient (REF) | payer MEDICARE ==
[~2020-06-29] MED LIST changes: -NS 1,000 ML IV ONE
== END ==
LOC: M LAB REF 18:31
PROVIDERS: ATTEND Radiology Diagnostic Radiology
DX: N63.12 Unspecified lump in the right breast, upper inner quadrant (principal)

== ENCOUNTER → 2021-11-03 | Outpatient (CLI) | payer MEDICARE ==
[~2021-11-03] MED LIST changes: +FERR324T21 PO; -FERR325T16 PO; -LISI2.5T2 PO; +LISI2.5T9 PO; +OMEP-173 PO; -OMEP-218 PO
== END ==
LOC: M WHC 13:28
PROVIDERS: ATTEND Obstetrics & Gynecology
DX: Z12.31 Encounter for screening mammogram for malignant neoplasm of breast (principal)

== ENCOUNTER → 2022-09-15 | Outpatient (CLI) | payer MEDICARE ==
[~2022-09-15] MED LIST changes: +CLOP75TA99 PO; -PLAV1TAB2 PO
== END ==
LOC: M RAD 13:08
PROVIDERS: ATTEND Physician Assistant
DX: M25.512 Pain in left shoulder (principal)

== ENCOUNTER → 2023-03-15 | Outpatient (CLI) | payer MEDICARE, MEDICAID | LOC: M WHC 10:32 | PROVIDERS: ATTEND Obstetrics & Gynecology | DX: Z12.31 Encounter for screening mammogram for malignant neoplasm of breast (principal) ==

== ENCOUNTER → 2023-12-03 | Outpatient (REF) | payer MEDICARE, MEDICAID ==
[~2023-12-03] MED LIST changes: -OXYB5TAB10 PO; +OXYB5TAB14 PO
== END ==
LOC: M LAB REF 16:29
PROVIDERS: ATTEND Family Medicine
DX: R35.0 Frequency of micturition (principal)

== ENCOUNTER → 2024-01-14 | Outpatient (CLI) | payer MEDICARE, MEDICAID ==
[2024-01-14 19:26] LABS: BASO % 0.4 % (0.0-1.0); EOS # 0.3 10^3/uL (0.0-0.5); EOS % 3.7 % (0.0-3.0); HEMOGLOBIN 12.9 g/dl (12.0-15.5); LYMPH # 2.6 10^3/uL (1.5-5.0); LYMPH % 29.3 % (24.0-44.0); MEAN CORPUSCULAR HEMOGLOBIN 29.6 pg (27.0-33.0); MEAN CORPUSCULAR HGB CONC 32.3 g/dl (32.0-36.5); MEAN CORPUSCULAR VOLUME 91.7 fl (80.0-96.0); MONO # 0.8 10^3/uL (0.0-0.8); MONO % 8.5 % (2.0-8.0); NEUTROPHILS # 5.2 10^3/uL (1.5-8.5); NEUTROPHILS % 57.8 % (36.0-66.0); PLATELET COUNT, AUTOMATED 230 10^3/uL (150-450); RED BLOOD COUNT 4.36 10^6/uL (4.00-5.40)
[2024-01-14 20:11] LABS: ALBUMIN 4.3 G/DL (3.2-5.2); ALKALINE PHOSPHATASE 71 U/L (46-116); ALT/SGPT 23 U/L (7.0-40); AST/SGOT 20 U/L (<34); BILIRUBIN,TOTAL 0.7 MG/DL (0.3-1.2); BLOOD UREA NITROGEN 20 MG/DL (9-23); CALCIUM LEVEL 9.3 MG/DL (8.3-10.6); CARBON DIOXIDE LEVEL 22 MMOL/L (20-31); CHLORIDE LEVEL 107 MMOL/L (98-107); CREATININE FOR GFR 0.83 MG/DL (0.55-1.30); GLOMERULAR FILTRATION RATE > 60.0 (>39); GLUCOSE, FASTING 87 MG/DL (74-106); IRON (FE) 51 UG/DL (50-170); MAGNESIUM LEVEL 2.1 MG/DL (1.8-2.4); PERCENT SATURATION 15.8 % (13.2-45.0); POTASSIUM SERUM 4.1 MMOL/L (3.5-5.1); SODIUM LEVEL 140 MMOL/L (136-145); TOTAL IRON BINDING CAPACITY 322 UG/DL (250-425); TOTAL PROTEIN 7.1 G/DL (5.7-8.2)
== END ==
LOC: M WUC 14:38
PROVIDERS: ATTEND Nurse Practitioner Family
DX: R10.30 Lower abdominal pain, unspecified (principal); R53.83 Other fatigue

== ENCOUNTER → 2024-01-24 | Outpatient (REF) | payer MEDICARE, MEDICAID | LOC: M LAB REF 12:06 | PROVIDERS: ATTEND Family Medicine | DX: E83.52 Hypercalcemia (principal) ==

== ENCOUNTER → 2024-04-29 | Outpatient (CLI) | payer MEDICARE, MEDICAID | LOC: M WHC 13:51 | PROVIDERS: ATTEND Obstetrics & Gynecology | DX: Z12.31 Encounter for screening mammogram for malignant neoplasm of breast (principal); R92.313 Mammographic fatty tissue density, bilateral breasts ==

== ENCOUNTER → 2025-04-01 | Outpatient (REF) | payer MEDICARE, MEDICAID ==
[~2025-04-01] MED LIST changes: +AMLO-751 PO; -AMLO10TA PO; +FERR325T19 PO; +REPA140I2 SC
== END ==
LOC: M LAB REF 12:29
PROVIDERS: ATTEND Family Medicine
DX: D64.9 Anemia, unspecified (principal)

== ENCOUNTER 2025-04-12 09:07 | Day surgery (SDC) | payer MEDICARE, MEDICAID ==
[~2025-04-12] VITALS: Ht 160 cm; Wt 68.4 kg
[~2025-04-12 09:07] MED LIST changes: +OMEP10CASR PO
[2025-04-12] MEDS ORDERED: LIDOCAINE 2% 100 MG/5 ML SDV (FOR ANES.) As Ordered ONE (10:40)
[2025-04-12 11:34] VITALS: TEMP 97.3
[2025-04-12 11:51] VITALS: BP 114/89; O2SAT 99
== END 2025-04-12 11:56 | disposition home or self-care (01) ==
LOC: M OPP 09:07
PROVIDERS: ATTEND Internal Medicine Gastroenterology
DX: Z12.11 Encounter for screening for malignant neoplasm of colon (principal); K63.5 Polyp of colon; K57.30 Diverticulosis of large intestine without perforation or abscess without bleeding; K64.8 Other hemorrhoids; K22.70 Barrett's esophagus without dysplasia; K44.9 Diaphragmatic hernia without obstruction or gangrene; K22.89 Other specified disease of esophagus; R12 Heartburn; Z86.73 Personal history of transient ischemic attack (TIA), and cerebral infarction without residual deficits; Z95.5 Presence of coronary angioplasty implant and graft; Z88.1 Allergy status to other antibiotic agents; Z88.8 Allergy status to other drugs, medicaments and biological substances; Z79.82 Long term (current) use of aspirin; Z79.899 Other long term (current) drug therapy

== ENCOUNTER → 2025-05-14 | Outpatient (CLI) | payer MEDICARE, MEDICAID | LOC: M WHC 15:13 | PROVIDERS: ATTEND Physician Assistant | DX: Z12.31 Encounter for screening mammogram for malignant neoplasm of breast (principal); R92.323 Mammographic fibroglandular density, bilateral breasts ==